=== PATIENT | female | born 1930 | race African-American/Black ===

== ENCOUNTER 2018-04-27 18:42 | Inpatient (IN) | payer MEDICARE ==
--- NOTE | 2018-04-27 20:35 | RAD ---
RADIOGRAPH CHEST 1 VIEW: Date: 04/27/18 Time: 8:29 p.m. HISTORY: 88-year-old female with fever and tachycardia. COMPARISON: 09/06/17 FINDINGS: New finding of left mid and inferior perihilar central air space opacity. New finding of mild interst itial densities at the bilateral lung bases. Cardiomediastinal silhouette remains normal. Lateral cos tophrenic angles are sharp. No pneumothorax. IMPRESSION: Left sided infiltrate is evidence for left sided pneumonia. ARNIE [] POS: ELI
[2018-04-27 21:11] LABS: Bilirubin Negative (Negative); Blood, Urine Moderate (Negative); Glucose, Urine (Dipstick) Negative (Negative); Leukocyte Negative (Negative); Nitrite Negative (Negative); Protein, Urine (Dipstick) 100 mg/dL (Neg-Trace); Urobilinogen 0.2 mg/dL (0.2-1.0)
[2018-04-27 21:13] LABS: Clarity Hazy (Clear)
[2018-04-27 21:21] LABS: Bacteria/HPF None Seen HPF (None Seen); Pathc Cast-AUWi Flag 2.03 (0-2.49); RBC/HPF None Seen HPF (0-3); WBC/HPF 0-3 HPF (0-3)
[2018-04-27 21:22] LABS: Yeast-AUWi Flag 48.8 (0-25.0)
[2018-04-27 21:29] LABS: Crystals/HPF 3+ AMORPH URATES HPF (Negative); Hyaline Casts/LPF 0-3 HYALINE CAST LPF (0-3 Hyaline); Yeast-All Forms None Seen HPF (None Seen)
[2018-04-28 00:46] VITALS: BMI 23.9
[2018-04-28] MEDS ORDERED: Acetaminophen 325 MG TAB PO PRN (01:21)
[2018-04-28] MEDS ORDERED: Ondansetron HCl/PF 4 MG/2 ML Vial IVP PRN (01:21)
[2018-04-28] MEDS ORDERED: Sodium Chloride 0.9% 1,000 ML IV SCH (01:21)
[2018-04-28] MEDS ORDERED: Ondansetron ODT 4 MG TAB SL PRN (01:21)
[2018-04-28] MEDS ORDERED: Vancomycin HCl 1 GM in Premix Bag 1 BAG IVPB SCH (01:30)
[2018-04-28] MEDS ORDERED: Bisacodyl 5 MG TAB PO PRN (02:42)
[2018-04-28] MEDS ORDERED: Dextrose 5% in Water 1,000 ML IV PRN (02:51)
[2018-04-28] MEDS ORDERED: Dextrose 50% Abboject 50 ML SYRINGE SLOW IVP PRN (02:51)
[2018-04-28] MEDS: Sodium Chloride 0.9% 1,000 ML IV SCH ×2 (03:15→16:33)
--- NOTE | 2018-04-28 03:32 | HP ---
PRIMARY CARE PROVIDER: Gaye Hurst M.D. CHIEF COMPLAINT: Fever. HISTORY OF PRESENT ILLNESS: Ms. Curry is a pleasant 88-year-old lady, who was seen at [facility] after she was transferred here from [facility]. She is currently unable to provide any significant history. She is mumbling, but her words are not m aking sense. Collateral history was obtained from review of medical record and discussion with the [facility] physician. She presented to the Emergency Room at [place] because of altered mental status for the last 24 hours as well as fever. She reportedly had a temperature of 100.5 degrees Fahrenheit at [facility]. She also had nausea, vomiting, and diarrhea for the last 24 hours. Over the last 2 4 hours, she also reportedly had a cough with green sputum. She usually does not use oxygen. Now, s he is requiring 4 liters of oxygen. She was sent over to [facility] for admission after she was diagnosed with sep sis at [facility]. REVIEW OF SYSTEMS: Could not be completed because of the patient's altered mental status. PAST MEDICAL HISTORY: Dyslipidemia; diabetes mellitus; hypertension; chronic kidney disease, stage 2 ; chronic physical deconditioning; diabetic neuropathy; and chronic normocytic anemia. PAST SURGICAL HISTORY: Neck surgery. SOCIAL HISTORY: The patient lives at home with her daughter. No history of tobacco use, alcohol use or recreational drug use. FAMILY HISTORY: Hypertension and diabetes mellitus in several family members. CODE STATUS: I could not address code status because of patient's altered mental status. This will need to be addressed in the morning with patient's family. ALLERGIES: ERYTHROMYCIN, PENICILLIN, and TETANUS TOXOID. CURRENT MEDICATIONS: Tylenol 650 mg every 4 hours as needed, Norvasc 10 mg daily, aspirin 81 mg santana y, Plavix 75 mg daily, ferrous sulfate 325 mg daily, NovoLog 70/30 insulin 10 units in the morning an d 5 units in the evening, lisinopril 10 mg daily, lovastatin 40 mg daily, Lopressor 12.5 mg 2 times a day, and niacin 500 mg daily. PHYSICAL EXAMINATION: GENERAL: On examination, Ms. Curry is sleepy, but arousable, not in acute distress. VITAL SIGNS: Blood pressure is 170/73, pulse 104, respiratory rate 18, and oxygen saturation 98% on 2.5 liters of oxygen per minute by nasal cannula. She is currently afebrile. EYES: No scleral icterus. No conjunctival pallor. ENT: Dry mucosal membranes, no oropharyngeal erythema or exudates. NECK: Supple, nontender, trachea is midline. RESPIRATORY: Accessory muscles of breathing are not active. Chest wall movements are symmetric bila terally. Lungs examination reveals left basal bronchial breathing. CARDIOVASCULAR: S1 and S2 are heard, tachycardic and regular. Peripheral pulses palpable. No carot id bruit, no pericardial rub. ABDOMEN: Soft, nontender, bowel sounds heard, no hepatomegaly, no splenomegaly. NEUROLOGIC: Cranial nerves II-XII intact. Deep tendon reflexes are 2+. LYMPHATIC: No cervical lymphadenopathy. MUSCULOSKELETAL: The patient is moving all four extremities. SKIN: No rashes or subcutaneous nodules. PSYCHIATRIC: Normal mood, normal affect, the patient is oriented to person, knows that she is in a h ospital, but cannot tell me which hospital it is, not oriented to time. LABORATORY DATA AND IMAGING: Ms. Curry's labs and investigations were reviewed. She had leukocytos is with 14,300 white cells, of which 90% are neutrophils, normocytic anemia with hemoglobin 10.9, nor mal platelet count, normal sodium, normal potassium, decreased carbon dioxide of 22, normal anion gap , elevated blood urea nitrogen of 49, elevated creatinine of 1.82, last known creatinine 1.20 on 03/04, normal total bilirubin, elevated AST of 80, normal ALT, normal alkaline phosphatase. Urinaly sis positive for protein, trace ketones and moderate amount of blood, negative for nitrite and leukoc yte esterase and decreased serum albumin of 3.3. She had a chest x-ray, which shows left mid and inf erior perihilar central airspace opacity. ASSESSMENT AND PLAN: Ms. Curry is a pleasant 88-year-old lady, who was seen at [facility] on 04/28/2018. Her problem list includes: 1. Sepsis: She is presenting with sepsis, most likely secondary to pneumonia. 2. Community-acquired pneumonia: She has been started on levofloxacin, which I will continue. Furt her clinical course depending on how she responds to the treatment. 3. Acute on chronic renal insufficiency: The patient is clinically dehydrated. We will provide int ravenous hydration and recheck creatinine. We will hold nephrotoxic medications including GALEN inhibi tor at this time. 4. Diabetes mellitus: Start Accu-Cheks, insulin sliding scale. 5. Dyslipidemia: Continue statin. 6. Hypertension: Monitor vital signs, titrate antihypertensives as needed. Many thanks for allowing me to participate in your patient's care. Please feel free to contact me wi th any questions or concerns. LEVEL OF RISK: Moderate. LEVEL OF COMPLEXITY: Moderate.
[2018-04-28 05:31] LABS: Anion Gap 15 mmol/L (10-20); BUN (Urea Nitrogen) 31 mg/dL (9.8-20.1); Calc. Creatinine Clearance 32 mL/min (70-130); Calcium 8.5 mg/dL (7.8-10.44); Carbon Dioxide 18 mmol/L (23-31); Chloride 111 mmol/L (98-107); Estimated GFR-MDRD 46; Glucose 170 mg/dL (83-110); Sodium 140 mmol/L (136-145)
[2018-04-28 06:00] LABS: Band 17 % (5-11); Hemoglobin 10.6 g/dL (12.0-16.0); Lymphocytes 5 % (21-51); MDiff Complete? YES; Mean Corpuscular HGB CONC 31.4 g/dL (32.0-36.0); Mean Corpuscular Hemoglobin 30.6 pg (27.0-31.0); Mean Corpuscular Volume 97.5 fL (78.0-98.0); Mean Platelet Volume 9.5 fL (7.4-10.4); Monocytes 6 % (0-10); Myelocyte 2 % (0-0); Neutrophil 70 % (42-75); Platelet Count 138 thou/uL (130-400); Red Blood Cell (RBC) Count 3.46 mill/uL (4.20-5.40); White Blood Cell (WBC) Count 10.3 thou/uL (4.8-10.8)
[2018-04-28] MEDS: Atorvastatin Calcium 10 MG TAB PO SCH (08:38)
[2018-04-28] MEDS: Niacin 500 MG TAB PO SCH (08:38)
[2018-04-28] MEDS: Ferrous Sulfate 325 MG TAB PO SCH (08:39)
[2018-04-28] MEDS: Metoprolol Tartrate 25 MG TAB PO SCH ×2 (08:39→22:33)
[2018-04-28] MEDS: Amlodipine 10 MG TAB PO SCH (08:40)
[2018-04-28] MEDS: Clopidogrel Bisulfate 75 MG TAB PO SCH (08:41)
[2018-04-28] MEDS: Insulin NPH/Reg Insulin Hm 300 UNITS/3 ML VIAL SC SCH ×2 (08:41→22:34)
[2018-04-28] MEDS: Heparin 5,000 UNITS/ML VIAL SC SCH ×3 (08:41→22:34)
[2018-04-28] MEDS: HumaLOG 300 UNITS/3 ML VIAL SC PRN (12:13)
[2018-04-28] MEDS: Acetaminophen 325 MG TAB PO PRN (16:32)
[2018-04-29] MEDS: Sodium Chloride 0.9% 1,000 ML IV SCH ×2 (07:41→20:45)
[2018-04-29] MEDS: Metoprolol Tartrate 25 MG TAB PO SCH ×2 (08:07→22:59)
[2018-04-29] MEDS: Amlodipine 10 MG TAB PO SCH (08:08)
[2018-04-29] MEDS: Niacin 500 MG TAB PO SCH (10:09)
[2018-04-29] MEDS: Ferrous Sulfate 325 MG TAB PO SCH (10:10)
[2018-04-29] MEDS: Clopidogrel Bisulfate 75 MG TAB PO SCH (10:10)
[2018-04-29] MEDS: Heparin 5,000 UNITS/ML VIAL SC SCH ×3 (10:10→22:59)
[2018-04-29] MEDS: Atorvastatin Calcium 10 MG TAB PO SCH (10:10)
[2018-04-29] MEDS: Insulin NPH/Reg Insulin Hm 300 UNITS/3 ML VIAL SC SCH ×2 (10:11→23:00)
--- NOTE | 2018-04-29 10:42 | PDOC.PN ---
- Subjective Encounter Start Date: 04/29/18 Encounter Start Time: 07:15 Subjective: awake, eating breakfast, no sob -: not fully oriented, moves upper extre better - Objective MAR Reviewed: Yes Vital Signs & Weight: Vital Signs (12 hours) Temp Pulse Resp BP BP Pulse Ox 04/29/18 08:08 114 H 181/73 H 04/29/18 07:49 98.4 F 114 H 18 181/73 H 100 Weight Weight 144 lb I&O: 04/28/18 04/29/18 04/30/18 06:59 06:59 06:59 Intake Total 640 Balance 640 Result Diagrams: 04/28/18 04:33 04/28/18 04:32 Additional Labs: Accuchecks 04/29/18 04/28/18 04/28/18 04:29 19:56 16:11 POC Glucose 95 174 H 114 H 04/28/18 11:22 POC Glucose 220 H Phys Exam - Physical Examination HEENT: PERRLA, moist MMs Neck: no JVD, supple Respiratory: no wheezing, no rales rhonchi+ Cardiovascular: RRR, no significant murmur Gastrointestinal: soft, non-tender, positive bowel sounds Musculoskeletal: no edema, pulses present Neurological: non-focal seen moving Upper Extre well Dx/Plan (1) Sepsis Code(s): A41.9 - SEPSIS, UNSPECIFIED ORGANISM Status: Acute Qualifiers: Sepsis type: sepsis due to unspecified organism Qualified Code(s): A41.9 - Sepsis, unspecified organism (2) PNA (pneumonia) Code(s): J18.9 - PNEUMONIA, UNSPECIFIED ORGANISM Status: Acute Qualifiers: Pneumonia type: due to unspecified organism Laterality: left Lung location: lower lobe of lung Qualified Code(s): J18.1 - Lobar pneumonia, unspecified organism (3) NAEL (acute kidney injury) Code(s): N17.9 - ACUTE KIDNEY FAILURE, UNSPECIFIED Status: Acute (4) Chronic anemia Code(s): D64.9 - ANEMIA, UNSPECIFIED Status: Chronic (5) DM type 2 (diabetes mellitus, type 2) Status: Chronic Qualifiers: Diabetes mellitus intermediate card tender insulin use: with intermediate card tender use Diabetes mellitus complication status: with unspecified complications Qualified Code(s) : E11.8 - Type 2 diabetes mellitus with unspecified complications; Z79.4 - truck terminal manager (current) use of insulin; Z79.4 - truck terminal manager (current) use of insulin; Z79.4 - truck terminal manager (current) use of insulin; Z79.4 - truck terminal manager (current) use of insulin (6) HTN (hypertension) Code(s): I10 - ESSENTIAL (PRIMARY) HYPERTENSION Status: Chronic Qualifiers: Hypertension type: essential hypertension Qualified Code(s): I10 - Essential (primary) hypertension - Plan on levaquin, add nebs prn -: prelim blood and urine cx are -ve -: gentle iv hydration till this evening and dc -: continue asp, plavix, lipitor, norvasc, lopressor, 70/30 insulin -: PT to mobilize as tolerated, will need assistance feeding as well * . Review of Systems - Medications/Allergies Allergies/Adverse Reactions: Allergies Allergy/AdvReac Type Severity Reaction Status Date / Time erythromycin base Allergy Verified 09/02/17 16:14 penicillin G Allergy Verified 09/02/17 16:14 Tetanus Vaccines and Toxoid Allergy Verified 09/02/17 16:14 Medications: Current Medications Acetaminophen (Tylenol) 650 mg PO Q4H PRN PRN Reason: Headache/Fever or Pain Last Admin: 04/28/18 16:32 Dose: 650 mg Amlodipine Besylate (Norvasc) 10 mg PO DAILY [facility] Last Admin: 04/29/18 08:08 Dose: 10 mg Aspirin (Aspirin Chewable) 81 mg PO DAILY [facility] Last Admin: 04/29/18 10:09 Dose: 81 mg Atorvastatin Calcium (Lipitor) 10 mg PO DAILY [facility] Last Admin: 04/29/18 10:10 Dose: 10 mg Bisacodyl (Dulcolax) 10 mg PO DAILYPRN PRN PRN Reason: Constipation Clopidogrel Bisulfate (Plavix) 75 mg PO DAILY [facility] Last Admin: 04/29/18 10:10 Dose: 75 mg Dextrose/Water (Dextrose 50%) 25 gm SLOW IVP PRN PRN PRN Reason: Hypoglycemia Ferrous Sulfate (Feosol) 325 mg PO QAM-WM [facility] Last Admin: 04/29/18 10:10 Dose: 325 mg Glucagon (Glucagon) 1 mg IM PRN PRN PRN Reason: Hypoglycemia Heparin Sodium (Porcine) (Heparin) 5,000 units SC TID [facility] Last Admin: 04/29/18 10:10 Dose: 5,000 units Sodium Chloride (Normal Saline 0.9%) 1,000 mls @ 70 mls/hr IV .[id number] [facility] Last Admin: 04/29/18 07:41 Dose: 1,000 mls Dextrose/Water (D5w) 1,000 mls @ 0 mls/hr IV .Q0M PRN; As Directed PRN Reason: Hypoglycemia Levofloxacin 750 mg/ Device 150 mls @ 100 mls/hr IVPB Q2D@1700 [facility] Insulin Human Isoph/Insulin Regular (Humulin 70/30) 5 units SC QPM [facility] Last Admin: 04/28/18 22:34 Dose: 5 unit Insulin Human Isoph/Insulin Regular (Humulin 70/30) 10 units SC QAM [facility] Last Admin: 04/29/18 10:11 Dose: 10 unit Insulin Human Lispro (Humalog) 0 units SC .MILD SLIDING SCALE PRN PRN Reason: Mild Correctional Scale Last Admin: 04/28/18 12:13 Dose: 3 unit Metoprolol Tartrate (Lopressor) 12.5 mg PO BID [facility] Last Admin: 04/29/18 08:07 Dose: 12.5 mg Niacin (Niacin) 500 mg PO DAILY [facility] Last Admin: 04/29/18 10:09 Dose: 500 mg
[2018-04-29] MEDS: Albuterol Sulfate 1.25 MG/3 ML NEB NEB SCH ×2 (15:17→22:09)
[2018-04-29] MEDS: Benzonatate 100 MG CAP PO SCH ×2 (16:00→22:59)
[2018-04-29] MEDS: guaiFENesin ER 600 MG TAB PO SCH (22:59)
[2018-04-30 04:50] LABS: Anion Gap 13 mmol/L (10-20); BUN (Urea Nitrogen) 21 mg/dL (9.8-20.1); Calc. Creatinine Clearance 36 mL/min (70-130); Calcium 8.1 mg/dL (7.8-10.44); Carbon Dioxide 21 mmol/L (23-31); Chloride 106 mmol/L (98-107); Estimated GFR-MDRD 54; Glucose 96 mg/dL (83-110); Potassium 3.5 mmol/L (3.5-5.1); Sodium 136 mmol/L (136-145)
[2018-04-30 05:16] LABS: Band 13 % (5-11); Hemoglobin 10.6 g/dL (12.0-16.0); Lymphocytes 21 % (21-51); MDiff Complete? YES; Mean Corpuscular HGB CONC 32.4 g/dL (32.0-36.0); Mean Corpuscular Hemoglobin 30.5 pg (27.0-31.0); Mean Corpuscular Volume 94.1 fL (78.0-98.0); Mean Platelet Volume 7.9 fL (7.4-10.4); Monocytes 7 % (0-10); Neutrophil 59 % (42-75); PLT Morphology Comment Appears Adequate; Platelet Count 191 thou/uL (130-400); RBC Distribution Width 13.1 % (11.5-14.5); Red Blood Cell (RBC) Count 3.46 mill/uL (4.20-5.40); White Blood Cell (WBC) Count 7.1 thou/uL (4.8-10.8)
[2018-04-30] MEDS: Albuterol Sulfate 1.25 MG/3 ML NEB NEB SCH ×3 (07:19→23:11)
[2018-04-30] MEDS: Ferrous Sulfate 325 MG TAB PO SCH (10:13)
[2018-04-30] MEDS: Amlodipine 10 MG TAB PO SCH (10:13)
[2018-04-30] MEDS: Atorvastatin Calcium 10 MG TAB PO SCH (10:13)
[2018-04-30] MEDS: Niacin 500 MG TAB PO SCH (10:14)
[2018-04-30] MEDS: guaiFENesin ER 600 MG TAB PO SCH ×2 (10:14→19:51)
[2018-04-30] MEDS: Benzonatate 100 MG CAP PO SCH ×3 (10:14→19:51)
[2018-04-30] MEDS: Heparin 5,000 UNITS/ML VIAL SC SCH ×3 (10:15→19:52)
[2018-04-30] MEDS: Metoprolol Tartrate 25 MG TAB PO SCH ×2 (10:15→19:51)
[2018-04-30] MEDS: Clopidogrel Bisulfate 75 MG TAB PO SCH (10:15)
[2018-04-30] MEDS: Insulin NPH/Reg Insulin Hm 300 UNITS/3 ML VIAL SC SCH ×2 (10:16→19:52)
[2018-04-30] MEDS: Sodium Chloride 0.9% 1,000 ML IV SCH (14:24)
[2018-04-30] MEDS: HumaLOG 300 UNITS/3 ML VIAL SC PRN (14:24)
--- NOTE | 2018-04-30 19:00 | PDOC.PN ---
- Subjective Encounter Start Date: 04/30/18 Encounter Start Time: 18:50 Subjective: f/u for sepsis from PNA. Currently on Levaquin and O2. No new issues. -: Tolerating po intake. - Objective MAR Reviewed: Yes Vital Signs & Weight: Vital Signs (12 hours) Temp Pulse Resp BP BP Pulse Ox 04/30/18 14:12 91 14 100 04/30/18 10:13 90 151/68 H 04/30/18 08:00 98.6 F 89 20 100 04/30/18 07:57 89 20 170/72 H 100 04/30/18 07:21 100 04/30/18 07:19 92 16 100 Weight Weight 144 lb I&O: 04/29/18 04/30/18 05/01/18 06:59 06:59 06:59 Intake Total 1080 Balance 1080 Result Diagrams: 04/30/18 04:06 04/30/18 04:06 Additional Labs: Accuchecks 04/30/18 04/30/18 04/30/18 16:44 11:07 04:32 POC Glucose 127 H 204 H 143 H 04/29/18 19:54 POC Glucose 188 H Microbiology 04/27/18 20:55 Urine Straight Catheter Urine Culture - Final NO GROWTH AT 36 HOURS 04/27/18 16:45 Venous blood - Left Arm Blood Culture - Preliminary NO GROWTH AT 48 HOURS 04/27/18 16:28 Venous blood - Left Arm Blood Culture - Preliminary NO GROWTH AT 48 HOURS Laboratory Tests 04/27/18 04/28/18 04/28/18 16:28 04:32 04:33 Band Neuts % (Manual) 17 H Creatinine 1.82 H 1.32 H Estimated GFR (MDRD) 46 04/30/18 04/30/18 04:06 04:06 Band Neuts % (Manual) 13 H Creatinine Estimated GFR (MDRD) 54 Radiology Reviewed by me: Yes (PCXR - LLL infiltrate) Phys Exam - Physical Examination Constitutional: NAD HEENT: PERRLA, sclera anicteric, oral pharynx no lesions Neck: no nodes, no JVD, supple, full ROM Occasional rhonchi Respiratory: no wheezing, no rales, clear to auscultation bilateral S1, S2 Cardiovascular: RRR, no significant murmur, no rub, gallop Gastrointestinal: soft, non-tender, no distention, positive bowel sounds Musculoskeletal: no edema, pulses present Neurological: normal sensation, moves all 4 limbs A x O x 2 Skin: no rash, normal turgor, cap refill <2 seconds Dx/Plan (1) Sepsis Code(s): A41.9 - SEPSIS, UNSPECIFIED ORGANISM Status: Acute Qualifiers: Sepsis type: sepsis due to unspecified organism Qualified Code(s): A41.9 - Sepsis, unspecified organism Comment: Continue Levaquin as outlined in #2, resolving (2) PNA (pneumonia) Code(s): J18.9 - PNEUMONIA, UNSPECIFIED ORGANISM Status: Acute Qualifiers: Pneumonia type: due to unspecified organism Laterality: left Lung location: lower lobe of lung Qualified Code(s): J18.1 - Lobar pneumonia, unspecified organism Comment: Continue Levaquin, O2 weaning as tolerated (3) NAEL (acute kidney injury) Code(s): N17.9 - ACUTE KIDNEY FAILURE, UNSPECIFIED Status: Acute Comment: Improved, avoid nephrotoxic meds and limit contrast exposure, hold Lisinopril another 24h (4) DM type 2 (diabetes mellitus, type 2) Status: Chronic Qualifiers: Diabetes mellitus halfway insulin use: with rodent exterminator use Diabetes mellitus complication status: with unspecified complications Qualified Code(s) : E11.8 - Type 2 diabetes mellitus with unspecified complications; Z79.4 - shelter (current) use of insulin; Z79.4 - shelter (current) use of insulin; Z79.4 - rodent exterminator (current) use of insulin; Z79.4 - shelter (current) use of insulin Comment: Continue NPH 10u qam and 5u qhs, ISS, ADA (5) CKD (chronic kidney disease) stage 3, GFR 30-59 ml/min Code(s): N18.3 - CHRONIC KIDNEY DISEASE, STAGE 3 (MODERATE) Status: Chronic Comment: Stable, renal function near baseline - Plan continue antibiotics, social work assistant, respiratory therapy, DVT proph w/SCDs Stable overall -: PT for mobilization -: Saline Lock IVF -: Change Levaquin 750mg po daily -: AM lab: BMP * Likely back to [facility] in 24-48h
[2018-05-01 05:05] LABS: Anion Gap 11 mmol/L (10-20); BUN (Urea Nitrogen) 20 mg/dL (9.8-20.1); Calc. Creatinine Clearance 39 mL/min (70-130); Calcium 8.2 mg/dL (7.8-10.44); Carbon Dioxide 21 mmol/L (23-31); Chloride 109 mmol/L (98-107); Estimated GFR-MDRD 59; Glucose 159 mg/dL (83-110); Potassium 3.7 mmol/L (3.5-5.1); Sodium 137 mmol/L (136-145)
[2018-05-01] MEDS: Albuterol Sulfate 1.25 MG/3 ML NEB NEB SCH ×3 (06:50→23:29)
[2018-05-01] MEDS: Ferrous Sulfate 325 MG TAB PO SCH (08:57)
[2018-05-01] MEDS: Niacin 500 MG TAB PO SCH (08:57)
[2018-05-01] MEDS: Metoprolol Tartrate 25 MG TAB PO SCH ×2 (08:58→21:18)
[2018-05-01] MEDS: Amlodipine 10 MG TAB PO SCH (08:58)
[2018-05-01] MEDS: guaiFENesin ER 600 MG TAB PO SCH ×2 (08:58→21:18)
[2018-05-01] MEDS: Clopidogrel Bisulfate 75 MG TAB PO SCH (08:58)
[2018-05-01] MEDS: Benzonatate 100 MG CAP PO SCH ×3 (08:58→21:18)
[2018-05-01] MEDS: Heparin 5,000 UNITS/ML VIAL SC SCH ×3 (08:59→21:23)
[2018-05-01] MEDS: Atorvastatin Calcium 10 MG TAB PO SCH (08:59)
[2018-05-01] MEDS: Insulin NPH/Reg Insulin Hm 300 UNITS/3 ML VIAL SC SCH ×2 (09:50→21:20)
--- NOTE | 2018-05-01 12:47 | PDOC.PN ---
- Subjective Encounter Start Date: 05/01/18 Encounter Start Time: 11:00 Subjective: is lethargic this am, no sob -: not in distress - Objective MAR Reviewed: Yes Vital Signs & Weight: Vital Signs (12 hours) Temp Pulse Resp BP BP Pulse Ox 05/01/18 08:58 88 154/51 H 05/01/18 08:00 99.5 F 88 16 100 05/01/18 07:19 99.5 F 16 154/51 H 100 05/01/18 06:50 88 16 100 Weight Weight 144 lb I&O: 04/30/18 05/01/18 05/02/18 06:59 06:59 06:59 Intake Total 1560 Balance 1560 Result Diagrams: 04/30/18 04:06 05/01/18 04:29 Additional Labs: Accuchecks 05/01/18 05/01/18 04/30/18 11:22 04:28 21:37 POC Glucose 125 H 148 H 121 H 04/30/18 04/30/18 19:45 16:44 POC Glucose 53 L* 127 H Phys Exam - Physical Examination HEENT: PERRLA, moist MMs Neck: no JVD, supple Respiratory: no wheezing, no rales Cardiovascular: RRR, no significant murmur Gastrointestinal: soft, non-tender, positive bowel sounds Musculoskeletal: pulses present, edema present Neurological: non-focal, moves all 4 limbs Dx/Plan (1) Sepsis Code(s): A41.9 - SEPSIS, UNSPECIFIED ORGANISM Status: Acute Qualifiers: Sepsis type: sepsis due to unspecified organism Qualified Code(s): A41.9 - Sepsis, unspecified organism Comment: Continue Levaquin as outlined in #2, resolving (2) PNA (pneumonia) Code(s): J18.9 - PNEUMONIA, UNSPECIFIED ORGANISM Status: Acute Qualifiers: Pneumonia type: due to unspecified organism Laterality: left Lung location: lower lobe of lung Qualified Code(s): J18.1 - Lobar pneumonia, unspecified organism Comment: Continue Levaquin, O2 weaning as tolerated (3) NAEL (acute kidney injury) Code(s): N17.9 - ACUTE KIDNEY FAILURE, UNSPECIFIED Status: Acute Comment: Improved, avoid nephrotoxic meds and limit contrast exposure, hold Lisinopril another 24h (4) Chronic anemia Code(s): D64.9 - ANEMIA, UNSPECIFIED Status: Chronic (5) DM type 2 (diabetes mellitus, type 2) Status: Chronic Qualifiers: Diabetes mellitus chcf insulin use: with chcf use Diabetes mellitus complication status: with hypoglycemia (6) HTN (hypertension) Code(s): I10 - ESSENTIAL (PRIMARY) HYPERTENSION Status: Chronic Qualifiers: Hypertension type: essential hypertension Qualified Code(s): I10 - Essential (primary) hypertension - Plan dm is labile, hold am dose of 70/30 -: encourage po intake, will need assistance to eat -: on levaquin, nebs prn -: bit more lethargic this am with low sugars, watch for asp/worsoning -: dc to snf if stable in 24-36hrs * . Review of Systems - Medications/Allergies Allergies/Adverse Reactions: Allergies Allergy/AdvReac Type Severity Reaction Status Date / Time erythromycin base Allergy Verified 09/02/17 16:14 penicillin G Allergy Verified 09/02/17 16:14 Tetanus Vaccines and Toxoid Allergy Verified 09/02/17 16:14 Medications: Current Medications Acetaminophen (Tylenol) 650 mg PO Q4H PRN PRN Reason: Headache/Fever or Pain Last Admin: 04/28/18 16:32 Dose: 650 mg Albuterol Sulfate (Albuterol Sulfate) 1.25 mg NEB [id number] [facility] Last Admin: 05/01/18 06:50 Dose: 1.25 mg Amlodipine Besylate (Norvasc) 10 mg PO DAILY [facility] Last Admin: 05/01/18 08:58 Dose: 10 mg Aspirin (Aspirin Chewable) 81 mg PO DAILY [facility] Last Admin: 05/01/18 08:57 Dose: 81 mg Atorvastatin Calcium (Lipitor) 10 mg PO DAILY [facility] Last Admin: 05/01/18 08:59 Dose: 10 mg Benzonatate (Tessalon) 100 mg PO TID [facility] Last Admin: 05/01/18 08:58 Dose: 100 mg Bisacodyl (Dulcolax) 10 mg PO DAILYPRN PRN PRN Reason: Constipation Clopidogrel Bisulfate (Plavix) 75 mg PO DAILY [facility] Last Admin: 05/01/18 08:58 Dose: 75 mg Dextrose/Water (Dextrose 50%) 25 gm SLOW IVP PRN PRN PRN Reason: Hypoglycemia Ferrous Sulfate (Feosol) 325 mg PO QAM-WM [facility] Last Admin: 05/01/18 08:57 Dose: 325 mg Glucagon (Glucagon) 1 mg IM PRN PRN PRN Reason: Hypoglycemia Guaifenesin (Mucinex) 600 mg PO Q12HR [facility] Last Admin: 05/01/18 08:58 Dose: 600 mg Heparin Sodium (Porcine) (Heparin) 5,000 units SC TID [facility] Last Admin: 05/01/18 08:59 Dose: 5,000 units Dextrose/Water (D5w) 1,000 mls @ 0 mls/hr IV .Q0M PRN; As Directed PRN Reason: Hypoglycemia Insulin Human Isoph/Insulin Regular (Humulin 70/30) 5 units SC QPM [facility] Last Admin: 04/30/18 19:52 Dose: Not Given Insulin Human Isoph/Insulin Regular (Humulin 70/30) 10 units SC QAM [facility] Last Admin: 05/01/18 09:50 Dose: 10 unit Insulin Human Lispro (Humalog) 0 units SC .MILD SLIDING SCALE PRN PRN Reason: Mild Correctional Scale Last Admin: 04/30/18 14:24 Dose: 3 unit Levofloxacin (Levaquin) 750 mg PO Q2D@0600 [facility] Last Admin: 05/01/18 05:14 Dose: 750 mg Metoprolol Tartrate (Lopressor) 12.5 mg PO BID [facility] Last Admin: 05/01/18 08:58 Dose: 12.5 mg Niacin (Niacin) 500 mg PO DAILY [facility] Last Admin: 05/01/18 08:57 Dose: 500 mg Sodium Chloride (Flush - Normal Saline) 10 ml IVF Q12HR [facility] Last Admin: 05/01/18 09:49 Dose: Not Given Sodium Chloride (Flush - Normal Saline) 10 ml IVF PRN PRN PRN Reason: Saline Flush
[2018-05-01] MEDS: Acetaminophen 325 MG TAB PO PRN (21:17)
[2018-05-02] MEDS: Albuterol Sulfate 1.25 MG/3 ML NEB NEB SCH ×3 (07:24→23:34)
[2018-05-02] MEDS: Ferrous Sulfate 325 MG TAB PO SCH (08:41)
[2018-05-02] MEDS: Metoprolol Tartrate 25 MG TAB PO SCH ×2 (08:41→20:43)
[2018-05-02] MEDS: Heparin 5,000 UNITS/ML VIAL SC SCH ×3 (08:41→20:43)
[2018-05-02] MEDS: Niacin 500 MG TAB PO SCH (08:41)
[2018-05-02] MEDS: Benzonatate 100 MG CAP PO SCH ×3 (08:41→20:43)
[2018-05-02] MEDS: Atorvastatin Calcium 10 MG TAB PO SCH (08:41)
[2018-05-02] MEDS: guaiFENesin ER 600 MG TAB PO SCH ×2 (08:42→20:43)
[2018-05-02] MEDS: Clopidogrel Bisulfate 75 MG TAB PO SCH (08:42)
[2018-05-02] MEDS: Amlodipine 10 MG TAB PO SCH (08:46)
[2018-05-02] MEDS ORDERED: Eucerin (Mineral Oil/Petrolatum,White) 30 gm Jar TOP PRN (08:47)
[2018-05-02] MEDS ORDERED: hydrALAZINE 20 MG/ML VIAL SLOW IVP PRN (08:47)
[2018-05-02] MEDS ORDERED: Artificial Tears 18 DROP/0.9 ML EA EYE PRN (08:47)
[2018-05-02] MEDS ORDERED: Zolpidem Tartrate 5 MG TAB PO PRN (08:47)
[2018-05-02] MEDS ORDERED: Ondansetron HCl/PF 4 MG/2 ML Vial IVP PRN (08:47)
[2018-05-02] MEDS ORDERED: Loratadine 10 MG TAB PO PRN (08:47)
[2018-05-02] MEDS ORDERED: Ondansetron ODT 4 MG TAB PO PRN (08:47)
[2018-05-02] MEDS ORDERED: HYDROcodone/Acetaminophen 5/325 mg Tablet PO PRN (08:47)
[2018-05-02] MEDS ORDERED: Chloraseptic Spray 180 ml Bottle PO PRN (08:47)
[2018-05-02] MEDS ORDERED: Sodium Chloride 0.65% Nasal 44 ML BOT EA NARE PRN (08:47)
[2018-05-02] MEDS ORDERED: Mag-Al 1200 mg/1200 mg/30 ML UDCUP PO PRN (08:47)
[2018-05-02] MEDS ORDERED: Milk Of Magnesia 30 ML UDCUP PO PRN (08:47)
[2018-05-02] MEDS ORDERED: Loperamide HCl 2 MG CAP PO PRN (08:47)
[2018-05-02] MEDS: Famotidine 20 MG TAB PO SCH ×2 (11:09→20:43)
--- NOTE | 2018-05-02 11:49 | PDOC.PN ---
- Subjective Encounter Start Date: 05/02/18 Encounter Start Time: 08:20 -: old records requested/rev Patient seen and examined for pneumonia. No new complaints. No overnight events - Objective MAR Reviewed: Yes Vital Signs & Weight: Vital Signs (12 hours) Temp Pulse Resp BP BP Pulse Ox 05/02/18 11:43 98.4 F 74 18 162/65 H 96 05/02/18 08:46 76 160/69 H 05/02/18 07:24 76 16 92 L 05/02/18 07:19 98.1 F 77 20 160/69 H 95 05/02/18 03:33 98.2 F 74 22 H 138/71 92 L 05/02/18 00:29 98.2 F 80 20 128/67 92 L Weight Weight 144 lb I&O: 05/01/18 05/02/18 05/03/18 06:59 06:59 06:59 Intake Total 1560 240 Balance 1560 240 Result Diagrams: 04/30/18 04:06 05/01/18 04:29 Additional Labs: Accuchecks 05/02/18 05/01/18 05/01/18 03:32 20:54 18:41 POC Glucose 150 H 228 H 139 H Phys Exam - Physical Examination Constitutional: NAD HEENT: PERRLA, moist MMs, sclera anicteric Neck: no JVD, supple Respiratory: no wheezing, no rales, no rhonchi Cardiovascular: RRR, no significant murmur, no rub Gastrointestinal: soft, non-tender, no distention, positive bowel sounds Musculoskeletal: no edema, pulses present Neurological: non-focal, normal sensation Lymphatic: no nodes Psychiatric: normal affect Skin: no rash, normal turgor Dx/Plan (1) NAEL (acute kidney injury) Code(s): N17.9 - ACUTE KIDNEY FAILURE, UNSPECIFIED Status: Acute Comment: Improved, avoid nephrotoxic meds and limit contrast exposure, hold Lisinopril another 24h (2) PNA (pneumonia) Code(s): J18.9 - PNEUMONIA, UNSPECIFIED ORGANISM Status: Acute Qualifiers: Pneumonia type: due to unspecified organism Laterality: left Lung location: lower lobe of lung Qualified Code(s): J18.1 - Lobar pneumonia, unspecified organism Comment: Continue Levaquin, O2 weaning as tolerated (3) Sepsis Code(s): A41.9 - SEPSIS, UNSPECIFIED ORGANISM Status: Acute Qualifiers: Sepsis type: sepsis due to unspecified organism Qualified Code(s): A41.9 - Sepsis, unspecified organism Comment: Continue Levaquin as outlined in #2, resolving (4) CKD (chronic kidney disease) stage 3, GFR 30-59 ml/min Code(s): N18.3 - CHRONIC KIDNEY DISEASE, STAGE 3 (MODERATE) Status: Chronic Comment: Stable, renal function near baseline (5) Chronic anemia Code(s): D64.9 - ANEMIA, UNSPECIFIED Status: Chronic (6) DM type 2 (diabetes mellitus, type 2) Status: Chronic Qualifiers: Diabetes mellitus intermediate project manager insulin use: with longterm use Diabetes mellitus complication status: with hypoglycemia (7) HTN (hypertension) Code(s): I10 - ESSENTIAL (PRIMARY) HYPERTENSION Status: Chronic Qualifiers: Hypertension type: essential hypertension Qualified Code(s): I10 - Essential (primary) hypertension (8) Physical deconditioning Code(s): R53.81 - OTHER MALAISE Status: Chronic (9) Dyslipidemia Code(s): E78.5 - HYPERLIPIDEMIA, UNSPECIFIED Status: Chronic (10) Vitamin D deficiency Code(s): E55.9 - VITAMIN D DEFICIENCY, UNSPECIFIED Status: Chronic - Plan cont current plan of care, continue antibiotics, protective services social worker * continue levaquin * medication reviewed as below * symptomatic treatment * expecting discharge to [facility] tomorrow. Review of Systems - Review of Systems Other: not reliable due to her level of cognitive status - Medications/Allergies Allergies/Adverse Reactions: Allergies Allergy/AdvReac Type Severity Reaction Status Date / Time erythromycin base Allergy Verified 09/02/17 16:14 penicillin G Allergy Verified 09/02/17 16:14 Tetanus Vaccines and Toxoid Allergy Verified 09/02/17 16:14 Medications: Current Medications Acetaminophen (Tylenol) 650 mg PO Q4H PRN PRN Reason: Headache/Fever or Pain Last Admin: 05/01/18 21:17 Dose: 650 mg Hydrocodone Bitart/Acetaminophen ([place] 5/325) 1 tab PO Q4H PRN PRN Reason: Moderate Pain (4-6) Al Hydroxide/Mg Hydroxide (Maalox) 15 ml PO Q4H PRN PRN Reason: Heartburn or Indigestion Albuterol Sulfate (Albuterol Sulfate) 1.25 mg NEB [id number] Last Admin: 05/02/18 07:24 Dose: 1.25 mg Amlodipine Besylate (Norvasc) 10 mg PO DAILY [facility] Last Admin: 05/02/18 08:46 Dose: 10 mg Artificial Tears (Tears Naturale) 0 drop EA EYE PRN PRN PRN Reason: Dry Eyes Aspirin (Aspirin Chewable) 81 mg PO DAILY [facility] Last Admin: 05/02/18 08:33 Dose: 81 mg Atorvastatin Calcium (Lipitor) 10 mg PO DAILY [facility] Last Admin: 05/02/18 08:41 Dose: 10 mg Benzonatate (Tessalon) 100 mg PO TID [facility] Last Admin: 05/02/18 08:41 Dose: 100 mg Bisacodyl (Dulcolax) 10 mg PO DAILYPRN PRN PRN Reason: Constipation Clopidogrel Bisulfate (Plavix) 75 mg PO DAILY [facility] Last Admin: 05/02/18 08:42 Dose: 75 mg Dextrose/Water (Dextrose 50%) 25 gm SLOW IVP PRN PRN PRN Reason: Hypoglycemia Famotidine (Pepcid) 20 mg PO BID [facility] Last Admin: 05/02/18 11:09 Dose: 20 mg Ferrous Sulfate (Feosol) 325 mg PO QAM-[facility] Last Admin: 05/02/18 08:41 Dose: 325 mg Glucagon (Glucagon) 1 mg IM PRN PRN PRN Reason: Hypoglycemia Guaifenesin (Mucinex) 600 mg PO Q12HR [facility] Last Admin: 05/02/18 08:42 Dose: 600 mg Heparin Sodium (Porcine) (Heparin) 5,000 units SC TID [facility] Last Admin: 05/02/18 08:41 Dose: 5,000 units Hydralazine HCl (Apresoline) 10 mg SLOW IVP Q4H PRN PRN Reason: Systolic BP > 180 Dextrose/Water (D5w) 1,000 mls @ 0 mls/hr IV .Q0M PRN; As Directed PRN Reason: Hypoglycemia Insulin Human Isoph/Insulin Regular (Humulin 70/30) 5 units SC QPM [facility] Last Admin: 05/01/18 21:20 Dose: 5 unit Insulin Human Lispro (Humalog) 0 units SC .MILD SLIDING SCALE PRN PRN Reason: Mild Correctional Scale Last Admin: 04/30/18 14:24 Dose: 3 unit Levofloxacin (Levaquin) 750 mg PO Q2D@0600 [facility] Last Admin: 05/01/18 05:14 Dose: 750 mg Loperamide HCl (Imodium) 2 mg PO PRN PRN PRN Reason: Diarrhea/Loose Stools Loratadine (Claritin) 10 mg PO DAILYPRN PRN PRN Reason: Sinus Symptoms Magnesium Hydroxide (Milk Of Magnesium) 30 ml PO DAILYPRN PRN PRN Reason: Constipation Metoprolol Tartrate (Lopressor) 12.5 mg PO BID [facility] Last Admin: 05/02/18 08:41 Dose: 12.5 mg Mineral Oil/White Petrolatum (Eucerin Cream) 0 gm TOP BIDPRN PRN PRN Reason: Dry Skin Niacin (Niacin) 500 mg PO DAILY [facility] Last Admin: 05/02/18 08:41 Dose: 500 mg Ondansetron HCl (Zofran Odt) 4 mg PO Q6H PRN PRN Reason: Nausea/Vomiting Ondansetron HCl (Zofran) 4 mg IVP Q6H PRN PRN Reason: Nausea/Vomiting Phenol (Chloraseptic [place] 180 Ml Bot) 0 ml PO PRN PRN PRN Reason: Sore Throat Sodium Chloride (Flush - Normal Saline) 10 ml IVF Q12HR [facility] Last Admin: 05/02/18 08:46 Dose: Not Given Sodium Chloride (Flush - Normal Saline) 10 ml IVF PRN PRN PRN Reason: Saline Flush Sodium Chloride ([place] Nasal [place] 0.65%) 0 ml EA NARE QIDPRN PRN PRN Reason: Nasal Congestion Zolpidem Tartrate (Ambien) 5 mg PO HSPRN PRN PRN Reason: Insomnia
[2018-05-02] MEDS: HumaLOG 300 UNITS/3 ML VIAL SC PRN ×2 (12:30→17:22)
[2018-05-02] MEDS: Acetaminophen 325 MG TAB PO PRN (17:52)
[2018-05-02] MEDS: Insulin NPH/Reg Insulin Hm 300 UNITS/3 ML VIAL SC SCH (20:44)
[2018-05-03 04:34] LABS: #Eosinphils 0.1 thou/uL (0.0-0.7); #Monocytes 0.7 thou/uL (0.11-0.59); #Neutrophils 5.6 thou/uL (1.40-6.50); %Basophils 0.4 % (0.0-1.0); %Eosinophils 0.9 % (0.0-10.0); %Lymphocytes 23.9 % (21.0-51.0); %Monocytes 8.3 % (0.0-10.0); %Neutrophils 66.5 % (42.0-75.0); Hemoglobin 10.5 g/dL (12.0-16.0); Mean Corpuscular HGB CONC 32.3 g/dL (32.0-36.0); Mean Corpuscular Hemoglobin 30.7 pg (27.0-31.0); Mean Corpuscular Volume 95.1 fL (78.0-98.0); Platelet Count 317 thou/uL (130-400); RBC Distribution Width 13.5 % (11.5-14.5); Red Blood Cell (RBC) Count 3.43 mill/uL (4.20-5.40); White Blood Cell (WBC) Count 8.4 thou/uL (4.8-10.8)
[2018-05-03 04:45] LABS: ALT (SGPT) 76 U/L (8-55); AST (SGOT) 82 U/L (5-34); Albumin 2.6 g/dL (3.4-4.8); Alkaline Phosphatase 226 U/L (40-150); Anion Gap 12 mmol/L (10-20); BUN (Urea Nitrogen) 28 mg/dL (9.8-20.1); Bilirubin, Total 0.4 mg/dL (0.2-1.2); Calc. Creatinine Clearance 33 mL/min (70-130); Calcium 8.5 mg/dL (7.8-10.44); Carbon Dioxide 22 mmol/L (23-31); Chloride 107 mmol/L (98-107); Estimated GFR-MDRD 48; Globulin 3.7 g/dL (2.4-3.5); Glucose 135 mg/dL (83-110); Protein, Total 6.3 g/dL (6.0-8.3); Sodium 137 mmol/L (136-145)
[2018-05-03] MEDS: Albuterol Sulfate 1.25 MG/3 ML NEB NEB SCH (07:02)
[2018-05-03] MEDS: Atorvastatin Calcium 10 MG TAB PO SCH (09:09)
[2018-05-03] MEDS: Niacin 500 MG TAB PO SCH (09:09)
[2018-05-03] MEDS: Metoprolol Tartrate 25 MG TAB PO SCH (09:09)
[2018-05-03] MEDS: guaiFENesin ER 600 MG TAB PO SCH (09:10)
[2018-05-03] MEDS: Benzonatate 100 MG CAP PO SCH (09:10)
[2018-05-03] MEDS: Amlodipine 10 MG TAB PO SCH (09:10)
[2018-05-03] MEDS: Famotidine 20 MG TAB PO SCH (09:10)
[2018-05-03] MEDS: Ferrous Sulfate 325 MG TAB PO SCH (09:10)
[2018-05-03] MEDS: Heparin 5,000 UNITS/ML VIAL SC SCH (09:11)
[2018-05-03] MEDS: Clopidogrel Bisulfate 75 MG TAB PO SCH (09:11)
--- NOTE | 2018-05-03 11:39 | DIS ---
PRIMARY CARE PHYSICIAN: Dr. Hurst. DATE OF ADMISSION: 04/27/2018 DATE OF DISCHARGE: 05/03/2018 DISCHARGE DISPOSITION: [facility]. PRIMARY DISCHARGE DIAGNOSES: Acute kidney injury, community-acquired pneumonia, sepsis. SECONDARY DISCHARGE DIAGNOSES: Physical deconditioning, vitamin D deficiency, dyslipidemia, hyperten santana, diabetes type 2, chronic kidney disease stage 3, normocytic normochromic anemia. PRIMARY PROCEDURE/OPERATION: None. RADIOLOGICAL INVESTIGATION: Chest x-ray on admission showed left basilar pneumonia. SIGNIFICANT LABORATORY DATA: WBC 8.4, hemoglobin 10.5, platelet 317. Sodium 137, potassium 4.0, BUN 28, creatinine 1.27, calcium 8.5, AST 82, ALT 76, alkaline phosphatase 226, albumin 2.6. Urinalysis unremarkable. Urine culture negative. Blood culture negative. DISCHARGE MEDICATIONS: Levofloxacin 500 mg p.o. daily for 5 more days, Tylenol 650 mg q.4 hourly p.r .n., amlodipine 10 mg p.o. daily, aspirin 81 mg p.o. daily, Plavix 75 mg p.o. daily, ferrous sulfate 325 mg p.o. daily, insulin 70/30, 10 units in morning and 5 units in the evening, lisinopril 10 mg p. o. daily, lovastatin 40 mg p.o. daily, metoprolol 12.5 mg p.o. b.i.d., and Niacin 500 mg p.o. daily. CONTRAINDICATIONS: None. CODE STATUS: FULL CODE. INPATIENT CONSULTANTS: None. ALLERGIES: ERYTHROMYCIN, PENICILLIN, TETANUS TOXOID. DISCHARGE PLAN: Post hospital, the patient is instructed to follow up with primary care physician in 1 week. The patient is planned for discharge to swing bed. HOSPITAL COURSE: An 88-year-old female with above-mentioned medical problem, who was admitted by Dr. Hussein on 04/28/2018. Please see his H&P for further detail. The patient came from home with altere d mental status. She has underlying dementia. She was having high grade fever. She was having coug h. Her chest x-ray showed a left lower lobe pneumonia. Initially, patient was evaluated at [facility] Emergency Room. Subsequently, the patient was transferred to our hospital for higher level of c are. The patient was admitted to medical floor for sepsis, pneumonia, and acute kidney injury. The patien t was given IV fluid. Her acute kidney failure improved. She had a negative culture. She was treat ed with levofloxacin. Upon discharge, we are prescribing levofloxacin for another 5 more days. The patient was on room air. Today, the patient is seen and examined at bedside. This patient had several family members present at bedside today and plan of care discussed with them. The patient's family members were interested i n sending her to swing bed at [facility] and with help of case manager specialist, we arranged to [facility] swing bed. PHYSICAL EXAMINATION: VITAL SIGNS: Today, temperature 98.4, pulse 87, respiratory rate 16, saturation 100% on room air, we ight 144 pound, and blood pressure 147/69. GENERAL: The patient is currently alert, awake, no obvious acute distress. HEAD: Normocephalic, atraumatic. EYES: Pupils round, reactive to light. Extraocular muscle intact. ENT: Oropharynx within normal limits. Moist mucous membranes, no oral lesion, no pharyngeal erythem a, no exudate. NECK: Supple, no JVD, no thyromegaly, no carotid bruit. No jugular venous distention. LUNGS: Clear to auscultation without any rales, or rhonchi, or respiratory muscle in use. CARDIAC: S1 and S2 regular without any murmur. ABDOMEN: Soft and benign without any tenderness. EXTREMITIES: No edema. NEUROLOGIC: Nonfocal examination though she has baseline cognitive deficit. REVIEW OF SYSTEMS: It is not reliable with the patient because of her cognitive deficit, but she is on room air, ambulatory, tolerating p.o. well, and hemodynamically stable. Paper work for discharge done. Discharge medication reconciliation done. Plan of care discussed wit h the family member as well. Total time spent on discharge day 31 minutes.
[2018-05-03 11:55] VITALS: BP 130/67; TEMP 98.3
[2018-05-04] MEDS ORDERED: Famotidine 20 MG TAB PO SCH (09:00)
== END 2018-05-03 14:45 | disposition swing bed (61) | DRG 871 ==
LOC: ERS 18:42 → ERHOLD 21:24 → T4-A 04-28 00:38
PROVIDERS: ADMIT Internal Medicine; ATTEND Internal Medicine
DX: A41.9 Sepsis, unspecified organism (principal); J18.9 Pneumonia, unspecified organism; N17.9 Acute kidney failure, unspecified; E55.9 Vitamin D deficiency, unspecified; E78.5 Hyperlipidemia, unspecified; I12.9 Hypertensive chronic kidney disease with stage 1 through stage 4 chronic kidney disease, or unspecified chronic kidney disease; E11.22 Type 2 diabetes mellitus with diabetic chronic kidney disease; N18.3 Chronic kidney disease, stage 3 (moderate); D64.9 Anemia, unspecified; Z88.0 Allergy status to penicillin; F03.90 Unspecified dementia, unspecified severity, without behavioral disturbance, psychotic disturbance, mood disturbance, and anxiety; E11.649 Type 2 diabetes mellitus with hypoglycemia without coma; Z79.4 Long term (current) use of insulin; E11.40 Type 2 diabetes mellitus with diabetic neuropathy, unspecified; Z83.3 Family history of diabetes mellitus; Z82.49 Family history of ischemic heart disease and other diseases of the circulatory system; Z79.02 Long term (current) use of antithrombotics/antiplatelets; Z79.82 Long term (current) use of aspirin; Z79.899 Other long term (current) drug therapy; E86.0 Dehydration
CPT/HCPCS: 36415; 36416; 51701; 71045; 80048; 80053; 81003; 81015; 85025; 87086; 94640; A4216; A4353; G8978-GP-CL; G8979-GP-CJ; J1644; J1956

== ENCOUNTER 2018-10-18 22:24 | Inpatient (IN) | payer MEDICARE, MEDICAID ==
--- NOTE | 2018-10-18 23:42 | RAD ---
PORTABLE CHEST: 10/18/2018 PROVIDED CLINICAL HISTORY: Cellulitis. Sepsis. COMPARISON: 09/23/2018 FINDINGS: The cardiac and mediastinal silhouette are within normal limits. Vascular calcification involves the aortic arch. No focal consolidation, pleural fluid, or pneumothorax apparent. IMPRESSION: No evidence for an acute cardiopulmonary process. POS: [facility]
[2018-10-18] MEDS ORDERED: Cefepime 2 GM in Sodium Chloride 0.9% 100 ML IVPB SCH (23:45)
[2018-10-19 01:19] LABS: Bilirubin Negative (Negative); Blood, Urine Moderate (Negative); Clarity CLEAR (Clear); Glucose, Urine (Dipstick) 250 mg/dL (Negative); Leukocyte Negative (Negative); Nitrite Negative (Negative); Protein, Urine (Dipstick) 100 mg/dL (Neg-Trace); Specific Gravity, Urine 1.011 (1.002-1.036); Urobilinogen 0.2 mg/dL (0.2-1.0)
[2018-10-19 01:22] LABS: Bacteria/HPF None Seen HPF (None Seen); Hyaline Casts/LPF 0-3 HYALINE CAST LPF (0-3 Hyaline); Pathc Cast-AUWi Flag 0.58 (0-2.49); RBC/HPF 0-3 HPF (0-3); Squamous Epithelial 0-3 HPF (0-3); WBC/HPF None Seen HPF (0-3)
[2018-10-19] MEDS ORDERED: Morphine 2 MG/ML SYRINGE ONE (02:13)
[2018-10-19] MEDS ORDERED: Calcium Carbonate 500 MG ChewTAB PO PRN (03:46)
[2018-10-19] MEDS ORDERED: Senokot S 8.6-50 MG TAB PO PRN (03:46)
[2018-10-19] MEDS ORDERED: Bisacodyl 5 MG TAB PO PRN (03:46)
[2018-10-19] MEDS ORDERED: Zolpidem Tartrate 5 MG TAB PO PRN (03:46)
[2018-10-19 05:48] VITALS: BMI 22.2
[2018-10-19] MEDS: Sodium Chloride 0.9% 1,000 ML IV SCH ×2 (06:25→18:52)
[2018-10-19] MEDS ORDERED: Aztreonam 1 GM in Sodium Chloride 0.9% 100 ML IVPB SCH (09:00)
[2018-10-19] MEDS: Enoxaparin Sodium 30 MG/0.3 ML SYRINGE SC SCH (10:12)
[2018-10-19] MEDS: Famotidine/PF 20 mg/2ml Vial SLOW IVP SCH ×2 (10:20→22:28)
[2018-10-19] MEDS: Clopidogrel Bisulfate 75 MG TAB PO SCH (10:20)
[2018-10-19] MEDS: Famotidine 20 MG TAB PO SCH ×2 (10:21→22:27)
[2018-10-19] MEDS: Ferrous Sulfate 325 MG TAB PO SCH (10:21)
[2018-10-19] MEDS: Amlodipine 10 MG TAB PO SCH (10:21)
[2018-10-19] MEDS: Metoprolol Tartrate 25 MG TAB PO SCH ×2 (10:22→22:27)
[2018-10-19] MEDS: Acetaminophen 325 MG TAB PO PRN (10:32)
--- NOTE | 2018-10-19 11:12 | HP ---
REASON FOR ADMISSION: Right foot abscess with cellulitis. HISTORY OF PRESENTING ILLNESS: Please note majority of this history is obtained by talking to Ms. Curry's granddaughter, Ms. Adeline Curry, who lives with the patient and the patient's daughter, Ms. Sue Stearns. The patient has underlying dementia and does not recall what happened. Per granddaughter, the patient had a cut on her pinky toe on the . They in fact went to [place] [facility] after home health nurse told them to go. She was given antibiotics and the home health was doing dressing changes on her. This just got worse from Thursday. She has been complaining of pain in the right foot. She has not ambulated from the . She normally walks with a rolling walker at home. She has had a fever of 100 degrees on arrival with a white count of 15, and dehydration with slight bump in her creatinine as well. PAST MEDICAL AND SURGICAL HISTORY: Hypertension, diabetes mellitus type 2, dyslipidemia, chronic anemia, CKD stage 2, history of urinary tract infection, dementia, and history of neck surgery. CURRENT MEDICATIONS: Per prior records, the patient is on; 1. Lopressor 25 mg p.o. q.a.m. 2. Lovastatin 40 mg p.o. q.a.m. 3. Plavix 75 mg p.o. daily. 4. Ferrous sulfate 325 mg daily. 5. Niacin 500 mg p.o. daily. 6. Lisinopril 20 mg daily. 7. NovoLog sliding scale. ALLERGIES: TO AZITHROMYCIN, PENICILLIN, AND TETANUS TOXOID. PERSONAL HISTORY: Per prior records, does not abuse alcohol or drugs. No history of smoking. She lives with her daughter. FAMILY HISTORY: Cannot be obtained as the patient has underlying dementia. Per prior record, several family members have hypertension and diabetes. CODE STATUS: The patient is DNR. This was discussed with her power of collections attorney , Ms. Daryn Rogers, the number to reach her is [phone]. REVIEW OF SYSTEMS: Cannot be obtained as the patient has underlying dementia. PHYSICAL EXAMINATION: GENERAL: The patient is an 88-year-old female, who is currently not in any acute distress. VITAL SIGNS: Blood pressure 166/74; pulse 88 per minute; respiratory rate 18 per minute; temperature on arrival was 100.1 degrees, currently 98.4 degrees; and saturating 98% on room air. NECK: Supple. No elevated JVD. EYES: Extraocular muscles intact. Pupils are reacting to light. Oral cavity, mucous membranes are dry. No exudates or congestion. CARDIOVASCULAR SYSTEM: S1 and S2 heard. Regular rhythm. RESPIRATORY SYSTEM: Air entry 1+ bilateral. No rales or rhonchi. ABDOMEN: Soft. Bowel sounds heard. No tenderness, rigidity, or guarding. EXTREMITIES: Right foot, there is edema and erythema over the foot. She has purulent collection over the dorsum and plantar aspect of the 4th and 5th metatarsals and the toes. It is extremely tender to touch. She also has a laceration over the knee on the same foot. The peripheral pulses are 1+ bilateral. CENTRAL NERVOUS SYSTEM: No gross focal deficits seen. The patient moves all extremities. PSYCHIATRIC SYSTEM: No obvious hallucinations or delusions. LABORATORY DATA: White count of 15, H and H 11 and 38, platelet count 357, with 85% neutrophils, MCV is 93. BUN 31, creatinine 1.45, serum bicarb 21, serum glucose 227. AST 50, ALT 41, alkaline phosphatase 194, albumin 3.3. A chest x-ray done shows no acute cardiopulmonary process. CLINICAL IMPRESSION AND PLAN: The patient will be admitted to medical floor for right foot abscess with sepsis and cellulitis. In view of the patient's allergies, she has been placed on aztreonam and vancomycin. She is also being gently hydrated with normal saline at 80 mL/h. I have consulted Dr. Page for General Surgery , who will be shortly seeing the patient. She will be kept n.p.o. for now. Her CT of the lower extremity results along with venous Doppler results are pending at present and will follow up on that. Once she gets debridement/possible ray amputation and the patient is postop, we will place her on her home medication including aspirin, Lipitor, Plavix, ferrous sulfate, and metoprolol as before. We will continue to closely monitor her on medical floor. She is currently on the telemetry unit and once the procedure is done, she will be transferred to medical floor. Job ID: [id number] [facility]
--- NOTE | 2018-10-19 11:32 | CT ---
PRELIMINARY REPORT/[facility]/EMERGENTY AFTER-HOURS PROCEDURE CT Right Lower Extremity Without IV Contrast, Tibia Fibula EXAM DATE/TIME: 10/19/2018 12:36 AM CLINICAL HISTORY: 88 years old, female; Injury or trauma; Injury history: Incident happened during PT move, toes of l f oot lacerated r leg. ; Initial encounter; Laceration; Lower leg; Right; Without foreign body; Injury date: 10/18/2018; Patient HX: Er8, patient presents for evaluation of r lower leg swelling/erythema, transf er [place] [facility] [place] out dvt and cellulitis right foot. Possible mechanism laceration, possible mec hanism l 5th digit, unknown. Symptoms are localized, most severe in the lower leg, on the right. TECHNIQUE: CT of the Right lower extremity without intravenous contrast was performed. Exam focused on the tibia and fibula. Coronal and sagittal reformatted images were created and reviewed. COMPARISON: No relevant prior studies available. FINDINGS: Bones/joints: Allowing for motion artifact at the level of the proximal diaphyses of the tibia and fi bula, there is no evidence of fracture. Soft tissues: Subcutaneous edema along the length of the medial lower leg. No soft tissue gas, absces s, or hematoma. IMPRESSION: 1. Subcutaneous edema along the length of the medial lower leg. No soft tissue gas, abscess, or hemat terrence. 2. Allowing for motion artifact at the level of the proximal diaphyses of the tibia and fibula, there is no evidence of fracture. Thank you for allowing us to participate in the care of your patient. Dictated and Authenticated by: Juarez Barillas MD 10/19/2018 1:35 AM Central Time ([place] & [place]) FINAL REPORT CT RIGHT LOWER EXTREMITY WITHOUT CONTRAST: COMPARISON: None. FINDINGS: There is subcutaneous emphysema along the fifth small toe with what appears to be some erosion of the distal phalanx. Findings can be seen with extensive subcutaneous emphysema surrounding the small to e of the right foot and can be seen with laceration, although given the cortical erosion of the dista l phalanx, osteomyelitis is of concern. MRI would be beneficial in this patient. POS: [facility]
--- NOTE | 2018-10-19 11:34 | ULT ---
PRELIMINARY REPORT/[facility]/EMERGENTY AFTER-HOURS PROCEDURE US Right Duplex Lower Extremity Veins, Limited EXAM DATE/TIME: 10/18/2018 11:47 PM CLINICAL HISTORY: 88 years old, female; Pain and signs and symptoms; Edema, localized and other: RT foot edema; Lower e xtremity, right; Leg, lower and foot TECHNIQUE: Real-time Duplex ultrasound of the Right Lower Extremity with 2-D rowe scale, color Doppler flow and spectral waveform analysis. Limited exam was focused on the right lower extremity veins. COMPARISON: No relevant prior studies available. FINDINGS: Right deep veins: The common femoral, femoral, popliteal and visualized calf veins are patent without thrombus. Normal compressibility, augmentation response and Doppler waveforms. Right superficial veins: Saphenofemoral junction is patent without thrombus. Soft tissues: No acute findings. IMPRESSION: No evidence of deep vein thrombosis. Thank you for allowing us to participate in the care of your patient. Dictated and Authenticated by: Jose Martin Orr MD 10/19/2018 12:15 AM Central Time ([place] & [place]) FINAL REPORT BILATERAL LOWER EXTREMITY VENOUS DOPPLER: HISTORY: Lower extremity edema. Pain. COMPARISON: None. TECHNIQUE: Real-time, rowe-scale, color Doppler, and spectral analysis of the of the right lower extremity veno us system was performed. The common femoral, femoral, proximal portion of the greater saphenous, and deep femoral veins, as well as the popliteal and posterior tibial veins, were interrogated. FINDINGS: There is normal flow, augmentation, and compression. IMPRESSION: No deep venous thrombosis. POS: [facility]
--- NOTE | 2018-10-19 14:54 | OP ---
DATE OF PROCEDURE: 10/19/2018 PREOPERATIVE DIAGNOSES: Diabetic infection, right foot with right knee contracture and PID, nonpalpable popliteal or pedal pulses. POSTOPERATIVE DIAGNOSES: Diabetic infection, right foot with right knee contracture and PID, nonpalpable popliteal or pedal pulses. PROCEDURES PERFORMED: Debridement and sharp excision of blistered skin, 4 x 5 cm extending plantar lateral right foot beneath the fifth metatarsal and fourth metatarsal extending in the webspace between the fifth and fourth metatarsals. This was debrided sharply, unroofing the blistered skin. In the webspace between the fifth and fourth toes, there was an ulceration with gaseous eruption on compression, purulent discharge, and erosion into the interphalangeal joint of the fifth PIP. ASSESSMENT AND PLAN: Severe diabetic infection right foot. I have discussed care with the family and hospice care be arranged. Discontinue antibiotics and wound care. Palliative measures. Job ID: [id number]
[2018-10-19] MEDS: Atorvastatin Calcium 40 MG TAB PO SCH (22:27)
[2018-10-19] MEDS ORDERED: Dextrose 50% Abboject 50 ML SYRINGE IVP PRN (23:23)
[2018-10-19] MEDS ORDERED: Dextrose 5% in Water 1,000 ML IV PRN (23:23)
[2018-10-19] MEDS: HumaLOG 300 UNITS/3 ML VIAL SC PRN (23:50)
[2018-10-19] MEDS ORDERED: Vancomycin HCl 750 MG in Sodium Chloride 0.9% 250 ML 250 ML IVPB SCH (23:59)
--- NOTE | 2018-10-20 00:29 | CON ---
DATE OF CONSULTATION: HISTORY OF PRESENT ILLNESS: Veronica Curry is an 88-year-old black female lives at home with her family. She has been ambulatory with a rolling walker up to about 10 days ago. She suffered an injury to her right foot. She was brought to the emergency room, I was asked by Dr. Quiñonez to see her. Her hemoglobin is 11, white count 15. Sodium 135, BUN 31, creatinine , glucose 227. Hemoglobin A1c 10. Since being evaluation in this evaluation, she has had a CAT scan of her right lower extremity and vascular ultrasound absence of DVT, noting absence of an abscess. At the bedside, the patient has a large plantar floating skin blister approximately 6 x 4 cm, it was unroofed and this was unroofed between the right fifth and fourth toes. It is noted that there is purulent discharge in the web space adjacent to the fifth toe and erosion into the interphalangeal joint of the phalanxes of the fifth toe. She has clinical osteomyelitis and a deep diabetic infection of the right foot. She has a right knee contracture. She is demented and not communicative. She has been nonambulatory for more than a week. She has absent pedal pulses. ALLERGIES: ERYTHROMYCIN, PENICILLIN, TETANUS TOXOID. TOBACCO: None. ALCOHOL: None. MEDICATIONS: At home; 1. Niacin. 2. Metoprolol. 3. Insulin. 4. Ferrous sulfate. 5. Plavix. 6. Aspirin. 7. Amlodipine. PAST SURGICAL HISTORY: Noncontributory. PAST MEDICAL HISTORY: Diabetes mellitus, hypertension, cholesterol, and dementia. REVIEW OF SYSTEMS: Not possible. PHYSICAL EXAMINATION: VITAL SIGNS: 5 feet 6 inches, 138 pounds, 22 BMI, 99.4, 74, 136/64. GENERAL: The patient is not communicative. She lies on her side with a right knee contracture and edematous right foot with blistered skin beneath the plantar aspect of the right fifth metatarsal and more medial. LUNGS: Clear to auscultation. CARDIAC: Regular rate and rhythm without murmur or gallop. ABDOMEN: Soft and nondistended. EXTREMITIES: Palpable femoral pulses, nonpalpable pedal pulses. Right foot edema. SKIN: As described on the plantar aspect of the foot unroofed and removed and wound extending into the interphalangeal joint, PIP of the right fifth toe and into the metatarsophalangeal joint with purulent discharge with gas on compression. ASSESSMENT AND PLAN: Severe diabetic infection right foot involving the metatarsophalangeal joint of the fifth toe and interphalangeal joint of proximal of the fifth toe with exposed joint. There is gaseous eruption on compression and purulent discharge. I have talked on the phone with her family, Sue Stearns, who is in agreement that DNR should be established and they do not want any intervention. They desire hospice. Honoring their wishes, I have ordered DNR. Discontinue intravenous antibiotics. Ordered palliative care. motion picture set up worker to arrange home hospice and the patient could be discharged home anytime with home hospice. The family wants to take care of her at home. Job ID: [id number]
[2018-10-20] MEDS: Sodium Chloride 0.9% 1,000 ML IV SCH ×2 (07:32→20:24)
[2018-10-20] MEDS: Famotidine/PF 20 mg/2ml Vial SLOW IVP SCH ×2 (10:10→20:30)
[2018-10-20] MEDS: Ferrous Sulfate 325 MG TAB PO SCH (10:10)
[2018-10-20] MEDS: Amlodipine 10 MG TAB PO SCH (10:10)
[2018-10-20] MEDS: Metoprolol Tartrate 25 MG TAB PO SCH ×2 (10:11→20:30)
[2018-10-20] MEDS: Clopidogrel Bisulfate 75 MG TAB PO SCH (10:11)
[2018-10-20] MEDS: Famotidine 20 MG TAB PO SCH ×2 (10:11→20:29)
[2018-10-20] MEDS: Enoxaparin Sodium 30 MG/0.3 ML SYRINGE SC SCH (10:11)
[2018-10-20] MEDS: Acetaminophen 325 MG TAB PO PRN (10:11)
[2018-10-20] MEDS: HumaLOG 300 UNITS/3 ML VIAL SC PRN ×2 (11:12→17:09)
[2018-10-20] MEDS: Atorvastatin Calcium 40 MG TAB PO SCH (20:29)
--- NOTE | 2018-10-20 21:18 | PDOC.PN ---
- Subjective Encounter Start Date: 10/20/18 Encounter Start Time: 09:20 Subjective: pt up in bed confused - Objective Resuscitation Status - Order Detail: 10/19/18 13:50 Resuscitation Status Routine Resuscitation Status: DNAR: NO Resuscitation Discussed with: daughter Vital Signs & Weight: Vital Signs (12 hours) Temp Pulse Resp BP BP Pulse Ox 10/20/18 15:44 98.6 F 70 16 123/58 L 99 10/20/18 12:00 99.9 F H 84 16 153/67 H 97 10/20/18 10:10 93 164/72 H 10/20/18 08:20 96 Weight Weight 138 lb I&O: 10/19/18 10/20/18 10/21/18 06:59 06:59 06:59 Intake Total 300 1900 Output Total 1150 Balance 300 750 Additional Labs: Accuchecks 10/20/18 10/20/18 10/20/18 16:42 10:49 06:20 POC Glucose 198 H 230 H 133 H 10/19/18 22:26 POC Glucose 267 H Phys Exam - Physical Examination Neck: no nodes, no JVD, supple, full ROM Respiratory: no wheezing, no rales, no rhonchi, wheezing present, clear to auscultation bilateral Cardiovascular: RRR, no significant murmur, no rub, gallop, irregular Gastrointestinal: soft, non-tender, no distention, positive bowel sounds right foot infected Dx/Plan (1) Cellulitis of right toe Code(s): L03.031 - CELLULITIS OF RIGHT TOE Status: Acute (2) Sepsis Code(s): A41.9 - SEPSIS, UNSPECIFIED ORGANISM Status: Acute (3) DM type 2 (diabetes mellitus, type 2) Status: Chronic Qualifiers: Diabetes mellitus intermediate teacher insulin use: with intermediate teacher use Diabetes mellitus complication status: with hypoglycemia (4) HTN (hypertension) Code(s): I10 - ESSENTIAL (PRIMARY) HYPERTENSION Status: Chronic Qualifiers: Hypertension type: essential hypertension Qualified Code(s): I10 - Essential (primary) hypertension (5) Physical deconditioning Code(s): R53.81 - OTHER MALAISE Status: Acute - Plan options disscussed by surgery to pt's family and family -: wanted home with hospice. -: abx were discontinued per surgery. * . Review of Systems - Review of Systems Other: unable to obtain - Medications/Allergies Allergies/Adverse Reactions: Allergies Allergy/AdvReac Type Severity Reaction Status Date / Time erythromycin base Allergy Verified 10/19/18 06:04 penicillin G Allergy Verified 10/19/18 06:04 Tetanus Vaccines and Toxoid Allergy Verified 10/19/18 06:04 Medications: Current Medications Acetaminophen (Tylenol) 650 mg PO Q4H PRN PRN Reason: Headache/Fever/Mild Pain (1-3) Last Admin: 10/20/18 10:11 Dose: 650 mg Amlodipine Besylate (Norvasc) 10 mg PO DAILY [facility] Last Admin: 10/20/18 10:10 Dose: 10 mg Aspirin (Aspirin Chewable) 81 mg PO DAILY [facility] Last Admin: 10/20/18 10:11 Dose: 81 mg Atorvastatin Calcium (Lipitor) 40 mg PO HS [facility] Last Admin: 10/20/18 20:29 Dose: 40 mg Bisacodyl (Dulcolax) 10 mg PO DAILYPRN PRN PRN Reason: Constipation Calcium Carbonate (Tums) 1,000 mg PO Q4H PRN PRN Reason: Heartburn or Indigestion Clopidogrel Bisulfate (Plavix) 75 mg PO DAILY [facility] Last Admin: 10/20/18 10:11 Dose: 75 mg Dextrose/Water (Dextrose 50%) 25 gm IVP PRN PRN PRN Reason: HYPOGLYCEMIA PROTOCOL Enoxaparin Sodium (Lovenox) 30 mg SC 0900 [facility] Last Admin: 10/20/18 10:11 Dose: 30 mg Famotidine (Pepcid) 20 mg SLOW IVP Q12HR [facility] Last Admin: 10/20/18 20:30 Dose: Not Given Famotidine (Pepcid) 20 mg PO BID [facility] Last Admin: 10/20/18 20:29 Dose: 20 mg Ferrous Sulfate (Feosol) 325 mg PO QAM-WM [facility] Last Admin: 10/20/18 10:10 Dose: 325 mg Glucagon (Glucagon) 1 mg IM PRN PRN PRN Reason: HYPOGLYCEMIA PROTOCOL Sodium Chloride (Normal Saline 0.9%) 1,000 mls @ 80 mls/hr IV .[id number] [facility] Last Admin: 10/20/18 20:24 Dose: 1,000 mls Dextrose/Water (D5w) 1,000 mls @ 0 mls/hr IV INF PRN PRN Reason: HYPOGLYCEMIA PROTOCOL Insulin Human Lispro (Humalog) 0 units SC .MILD SLIDING SCALE PRN; Protocol PRN Reason: MILD SLIDING SCALE Last Admin: 10/20/18 17:09 Dose: 2 unit Metoprolol Tartrate (Lopressor) 12.5 mg PO BID [facility] Last Admin: 10/20/18 20:30 Dose: 12.5 mg Senna/Docusate Sodium (Senokot S) 2 tab PO BIDPRN PRN PRN Reason: Constipation Sodium Chloride (Flush - Normal Saline) 10 ml IVF Q12HR PRN PRN Reason: Saline Flush Last Admin: 10/19/18 22:30 Dose: 10 ml Sodium Chloride (Flush - Normal Saline) 10 ml IVF PRN PRN PRN Reason: Saline Flush Zolpidem Tartrate (Ambien) 5 mg PO HSPRN PRN PRN Reason: Insomnia
[2018-10-21] MEDS: HumaLOG 300 UNITS/3 ML VIAL SC PRN ×2 (06:28→11:43)
[2018-10-21] MEDS: Sodium Chloride 0.9% 1,000 ML IV SCH (09:25)
[2018-10-21] MEDS: Enoxaparin Sodium 30 MG/0.3 ML SYRINGE SC SCH (09:26)
[2018-10-21] MEDS: Clopidogrel Bisulfate 75 MG TAB PO SCH (09:27)
[2018-10-21] MEDS: Ferrous Sulfate 325 MG TAB PO SCH (09:27)
[2018-10-21] MEDS: Amlodipine 10 MG TAB PO SCH (09:27)
[2018-10-21] MEDS: Famotidine 20 MG TAB PO SCH (09:27)
[2018-10-21] MEDS: Metoprolol Tartrate 25 MG TAB PO SCH (09:28)
[2018-10-21] MEDS: Famotidine/PF 20 mg/2ml Vial SLOW IVP SCH (09:28)
[2018-10-21] MEDS: Acetaminophen 325 MG TAB PO PRN (09:30)
[2018-10-21 11:29] VITALS: BP 165/71; TEMP 98.9
--- NOTE | 2018-10-22 06:38 | DIS ---
DATE OF ADMISSION: 10/19/2018 DATE OF DISCHARGE: 10/21/2018 DISCHARGE DIAGNOSES: As of the following; 1. Cellulitis of the right toe. 2. Sepsis. 3. Diabetes. 4. Hypertension. 5. Physical deconditioning. 6. Peripheral vascular disease. HOSPITAL COURSE: The patient is a very pleasant 88-year-old patient with a history of dementia, who presented to the hospital with complaints of right foot pain and cellulitis. The patient at this time was put on broad-spectrum antibiotics. Also, Surgery was consulted. The patient did have a CT of the lower extremity and Dopplers. Per the CT indicated that some subcutaneous edema along the length of the medial lower leg. No abscess or gas or hematoma was noted. She also had a vascular ultrasound which indicated no DVT. The patient actually had CT of the right lower extremity without contrast indicated that she did have some cortical erosion, which most likely could to be concerning for osteo. Given patient's advanced age and dementia, the surgeon talked with a family member the options would be either amputation versus hospice. The patient's family opted for hospice and the patient will be discharged home with home hospice. PHYSICAL EXAMINATION: VIAL SIGNS: The patient's vital signs on discharge was temperature 98.9, 100 pulse, respirations 18, oxygen saturation 96% on room air, 165/77 blood pressure. GENERAL: She is awake, alert, pleasantly confused. CV: S1 and S2 present. No murmurs, rubs, or gallops. LUNGS: Clear to auscultation. No rhonchi or wheezes noted. ABDOMEN: Soft and nontender. Bowel sounds are present x2. EXTREMITIES: Right lower extremity has erythema and warm. HOME MEDICATIONS: All of her home medications were continued. She is going to be sent home with; 1. Tylenol No. 3 one tablet q.8 hours p.r.n. 2. Atorvastatin 40 mg at bedtime. 3. Ambien 5 mg at bedtime p.r.n. 4. Norvasc 10 mg daily. 5. Clopidogrel 75 mg daily. 6. Lovastatin 40 mg daily. 7. Metoprolol 25 mg b.i.d. Again, she will be discharged home with hospice and she will follow up with palliative care and hospice. Job ID: [id number]
== END 2018-10-21 12:11 | disposition hospice, home (50) | DRG 854 ==
LOC: ERS 22:24 → 2SE 10-19 03:20
PROVIDERS: ADMIT Internal Medicine; ATTEND Internal Medicine
PROC: 0SBP0ZZ Excision of Right Toe Phalangeal Joint, Open Approach (ICD-10-PCS; principal; 2018-10-19)
DX: A41.9 Sepsis, unspecified organism (principal); L02.611 Cutaneous abscess of right foot; M86.9 Osteomyelitis, unspecified; E11.621 Type 2 diabetes mellitus with foot ulcer; F03.90 Unspecified dementia, unspecified severity, without behavioral disturbance, psychotic disturbance, mood disturbance, and anxiety; E11.22 Type 2 diabetes mellitus with diabetic chronic kidney disease; L97.519 Non-pressure chronic ulcer of other part of right foot with unspecified severity; I12.9 Hypertensive chronic kidney disease with stage 1 through stage 4 chronic kidney disease, or unspecified chronic kidney disease; N18.2 Chronic kidney disease, stage 2 (mild); E78.5 Hyperlipidemia, unspecified; D63.8 Anemia in other chronic diseases classified elsewhere; Z79.02 Long term (current) use of antithrombotics/antiplatelets; Z88.0 Allergy status to penicillin; Z88.1 Allergy status to other antibiotic agents; Z88.7 Allergy status to serum and vaccine; Z79.4 Long term (current) use of insulin; Z66 Do not resuscitate; L03.031 Cellulitis of right toe; Z79.82 Long term (current) use of aspirin; E11.51 Type 2 diabetes mellitus with diabetic peripheral angiopathy without gangrene; M81.0 Age-related osteoporosis without current pathological fracture; Z51.5 Encounter for palliative care; M24.561 Contracture, right knee; E11.628 Type 2 diabetes mellitus with other skin complications; E11.69 Type 2 diabetes mellitus with other specified complication
CPT/HCPCS: 36415; 36416; 51701; 71045; 81003; 81015; 83605; 87040; 87086; 96361; 96365; 96375; A4353; J0692; J1650; J2270; J3370; J7050; S0028